=== PATIENT | female | born 1945 | race Two or more races ===

== ENCOUNTER 2023-06-12 17:21 | Emergency (ER) | payer MEDICARE, MEDICAID ==
[~2023-06-12] VITALS: Ht 154.9 cm; Wt 57.3 kg
[2023-06-12 17:30] VITALS: TEMP 98.6
[2023-06-12 17:32] VITALS: BP 184/84; PULSE 80; RESP 18; O2SAT 98
[2023-06-12] MEDS ORDERED: ACET500T58 PO (18:24)
[2023-06-12] MEDS ORDERED: CEPH500C PO (18:24)
[2023-06-12] MEDS: LIDOCAINE 1% HCL (LOCAL ANESTH.) INJ 20ML MDV ID ONE (18:30)
[2023-06-12] MEDS: ONDANSETRON ODT 4 MG TAB PO ONE (18:31)
[2023-06-12] MEDS: HYDROcodone-ACET 5/325MG TAB PO ONE (18:31)
== END 2023-06-12 18:55 | disposition home or self-care (01) ==
LOC: ER 17:21
DX: S51.811A Laceration without foreign body of right forearm, initial encounter (principal); Z79.899 Other long term (current) drug therapy; W22.8XXA Striking against or struck by other objects, initial encounter; Y93.89 Activity, other specified; Y92.89 Other specified places as the place of occurrence of the external cause; Y99.8 Other external cause status
CPT/HCPCS: 12002; 99284; J2001; Q0162

== ENCOUNTER 2024-08-18 23:28 | Inpatient (IN) | payer MEDICARE, MEDICAID ==
[~2024-08-18] VITALS: Ht 149.9 cm; Wt 56.4 kg
[~2024-08-18 23:28] MED LIST: ACET500T58 PO; CEPH500C PO
--- NOTE | 2024-08-19 00:08 | ED.PDOC ---
Foreign Body HPI Comments 78-year-old female came to ER for foreign body obstruction. Patient states she was cooking earlier, when she decided to taste the beef, when the piece of meat got stuck in her throat. Denies any drooling or shortness a breath. Chief Complaint: Foreign Body Time Seen by MD: 00:08 Primary Care Provider: ELY History of Present Illness: Nurses Notes Allergies: Coded Allergies: NO KNOWN ALLERGIES (Unverified , 06/12/23) Home Meds Active Scripts Cephalexin Monohydrate (Cephalexin) 500 Mg Cap, 1 CAP PO BID for 7 Days, #14 CAP 0 Refills Prov:SKYLA ALEX 06/12/23 Acetaminophen (Acetaminophen) 500 Mg Tab, 500 MG PO Q4HPRN, #30 TAB 0 Refills Prov:SKYLA ALEX 06/12/23 Information Source: Patient Mode of Arrival: Ambulatory Timing: Hours Duration: Since onset Severity: Moderate Ability to handle secretions: Normal Prehospital treatment: None Location: Esophagus Context: Ingestion Foreign Body: Food Associated signs and symptoms: Pain Past Medical History PAST MEDICAL HISTORY: Denies Surgical History: Denies all surgeries OIL PRODUCER History: No Pertinent OIL PRODUCER History Family History Family History: Reviewed,noncontributory to illness Social History Smoker: Non-Smoker Alcohol: Denies ETOH Use Drugs: Denies Drug Use Lives In: Home Constitutional: denies: chills, diaphoresis, fatigue, fever, malaise, sweats, weakness, others EENTM: reports: throat pain; denies: blurred vision, double vision, ear bleeding, ear discharge, ear drainage, ear pain, ear ringing, eye pain, eye redness, hearing loss, mouth pain, mouth swelling, nasal discharge, nose bleeding, nose congestion, nose pain, photophobia, tearing, throat swelling, voice changes, others Respiratory: denies: cough, hemoptysis, orthopnea, SOB at rest, shortness of breath, SOB with excertion, stridor, wheezing, others Cardiovascular: denies: chest pain, dizzy spells, diaphoresis, Dyspnea on exertion, edema, irregular heart beat, left arm pain, lightheadedness, palpitations, PND, syncope, others Gastrointestinal: denies: abdomen distended, abdominal pain, blood streaked bowels, constipated, diarrhea, dysphagia, difficulty swallowing, hematemesis, me seth, nausea, poor appetite, poor fluid intake, rectal bleeding, rectal pain, vomiting, others Genitourinary: denies: abnormal vagina bleeding, burning, dyspareunia, dysuria, flank pain, frequency, hematuria, incontinence, pain, , vagina discharge, urgency, others Neurological: denies: dizziness, fainting, headache, left sided numbness, left sided weakness, numbness, paresthesia, pre-existing deficit, right sided numbness, right sided weakness, seizure, speech problems, tingling, tremors, weakness, others Musculoskeletal: denies: back pain, gout, joint pain, joint swelling, muscle pain, muscle stiffness, neck pain, others Integumetry: denies: bruises, change in color, change in hair/nails, dryness, laceration, lesions, lumps, rash, wounds, others Allergic/Immunocompromised: denies: Difficulty Healing, Frequent Infections, Hives, Itching, others Hematologic/Lymphatic: denies: anemia, blood clots, easy bleeding, easy bruising, swollen glands, others Endocrine: denies: excessive hunger, excessive sweating, excessive thirst, excessive urination, flushing, intolerance to cold, intolerance to heat, unexplained weight gain, unexplained weight loss, others Psychiatric: denies: anxiety, bipolar disorder, depression, hopeless, panic disorder, schizophrenia, sleepless, suicidal, others Physical Exam General Appearance: No Apparent Distress, Normal HEENT: Normal ENT Inspection, Pharynx Normal, TMs Normal Neck: Full Range of Motion, Non-Tender, Normal, Normal Inspection Respiratory: Chest Non-Tender, Lungs Clear, No Accessory Muscle Use, No Respiratory Distress, Normal Breath Sounds Cardiovascular: No Edema, No JVD, No Murmur, No Gallop, Normal Peripheral Pulses, Regular Rate/Rhythm Breast Exam: Deferred Gastrointestinal: No Organomegaly, Non Tender, No Pulsatile Mass, Normal Bowel Sounds, Soft Genitalia: Deferred Pelvic: Deferred Rectal: Deferred Extremities: No calf tenderness, Normal capillary refill, Normal inspection, Normal range of motion, Non-tender, No pedal edema Musculoskeletal : Apperance: Normal Neurologic: Alert, wholesale account executive II-XII nml as Tested, No Motor Deficits, Normal Affect, Normal Mood, No Sensory Deficits Cerebellar Function: Normal Reflexes: Normal Skin: Dry, Normal Color, Warm Lymphatic: No Adenopathy Was a procedure done? Was a procedure done?: No FB Differential Dx Differential Diagnosis: Airway Obstruction, Esophageal Obstruction, Foreign Body X-Ray, Labs, Meds, VS Vital Signs Date Time Temp Pulse Resp B/P (MAP) Pulse Ox O2 Delivery O2 Flow Rate FiO2 08/19/24 00:23 80 20 95 Room Air* 0 21 08/19/24 00:10 98.0 80 20 142/104 (117) 95 98.0 08/18/24 23:52 98.2 70 20 144/109 (121) 97 98.2 Current Medications Medications (Trade) Dose Ordered Sig/Brooks Route Start Time Stop Time Status Last Admin Glucagon (Glucagen) 1 mg ONCE ONCE IV 08/19/24 00:00 08/19/24 00:01 DC 08/19/24 00:16 Sodium Chloride 1,000 ml @ 1,000 mls/hr Q1H ONCE IV 08/19/24 00:00 08/19/24 00:59 DC 08/19/24 00:16 Time of 1ST Reevaluation: 00:05 Reevaluation 1ST: Unchanged Patient Education/Counseling: Diagnosis, Treatment Family Education/Counseling: No Family Present Departure 1 Departure Time of Disposition: 01:39 (Patient with a potential foreign body in her throat. Attempted glucagon patient is having difficulty swallowing liquids. We will admit patient for further workup and expert consultation.) Impression: Primary Impression: Foreign body sensation in throat Disposition: 09 ADMITTED INPATIENT Admit to: Med Surg Condition: Serious Critical Care Note Critical Care Time?: Yes Critical care comment: Concern for choking Authorized and Performed by: Leroy Louie MD Total critical care time: Approximately 39 minutes Due to a high probability of clinically significant, life threatening deterioration, the patient required my highest level of preparedness to intervene emergently and I personally spent this critical care time directly and personally managing the patient. This critical care time included obtaining a history; examining the patient; pulse oximetry; ordering and review of studies; arranging urgent treatment with development of a management plan; evaluation of patient's response to treatment; frequent reassessment; and, discussions with other providers. This critical care time was performed to assess and manage the high probability of imminent, life-threatening deterioration that could result in multi-organ failure. It was exclusive of separately billable procedures and treating other patients and teaching time. Please see my other sections and the rest of the note for further information on patient assessment and treatment. Stability Stability form required: No Heart Score Heart Score: Heart Score Response (Comments) Value History N/A 0 EKG N/A 0 Age N/A 0 Risk Factors N/A 0 Troponin N/A 0 Total 0 I personally scribed for LEROY LOUIE MD ([email or web address]) on 08/19/24 at 00:08. Electronically submitted by Brennen Yoon ([facility]). LEROY LOUIE MD Aug 19, 2024 00:08
[2024-08-19] MEDS: SODIUM CHLORIDE 0.9% 1,000 ML IV ONE (00:16)
[2024-08-19] MEDS: GLUCAGON EMERG KIT 1mg/1ml IV ONE (00:16)
--- NOTE | 2024-08-19 00:20 | DVH ---
CHEST RADIOGRAPH Indication: choking Technique: Single frontal view of the chest was obtained COMPARISON: None FINDINGS: Lines and Tubes: None Lungs: Clear Pleura: No effusion. No pneumothorax. Cardiomediastinal contours: Unremarkable IMPRESSION: No abnormality demonstrated.
[2024-08-19 00:23] VITALS: PULSE 80; RESP 20; O2SAT 95
[2024-08-19 01:52] LABS: Basophils # (auto) 0.1 10 ^3/uL (0-0.2); Basophils % (auto) 0.8 % (0.0-2.0); Eosinophils # (auto) 0.1 10 ^3/uL (0-0.8); Eosinophils % (auto) 1.1 % (0.0-7.0); Hemoglobin 14.5 g/dL (12.2-16.2); Lymphocytes # (auto) 1.9 10 ^3/uL (0.4-5.4); Lymphocytes % (auto) 19.7 % (10.0-50.0); Mean Corpuscular Hemoglobin 30.1 pg (28.0-32.0); Mean Corpuscular Hgb Conc. 33.7 g/dL (32.0-36.0); Mean Corpuscular Volume 89.1 fL (80.0-100.0); Monocytes # (auto) 0.7 10 ^3/uL (0-1.3); Monocytes % (auto) 7.1 % (0.0-12.0); Neutrophils # (auto) 6.7 10 ^3/uL (1.6-8.6); Neutrophils % (auto) 71.3 % (37.0-80.0); Nucleated Red Blood Cells % 0.1 %; Platelet Count (auto) 175 10^3/uL (140-450); Red Blood Cells 4.82 10^6/uL (4.0-5.20); Red Cell Distribution Width 13.6 % (11.8-14.3); White Blood Cell 9.4 10^3/uL (4.4-10.8)
[2024-08-19 02:08] LABS: Potassium 3.5 mmol/L (3.5-5.1)
[2024-08-19 02:09] LABS: Anion Gap 9 (5-15); Calcium 8.7 mg/dL (8.7-10.4); Carbon Dioxide 25 mmol/L (20-31)
[2024-08-19] MEDS: ONDANSETRON HCL 4 MG/2 ML VIAL IV ONE (02:11)
[2024-08-19] MEDS: MORPHINE SULFATE 4 MG/ML SYR/VIAL IV ONE (02:12)
[2024-08-19 02:14] LABS: BUN/Creatinine Ratio 19.8 (10.0-20.0); Blood Urea Nitrogen 16 mg/dL (9-23)
[2024-08-19 02:29] LABS: Chloride 112 mmol/L (98-107); Glucose 126 mg/dL (74-106); Sodium 146 mmol/L (136-145)
--- NOTE | 2024-08-19 10:25 | DVHINCON2 ---
Date of service: Aug 19, 2024 Referring Physician Michele Reason for Consultation Food impaction History of Present Illness The patient is a 78-year-old female with a prior history of food impaction who presents with similar symptoms. She complains of dysphagia. She points to her throat states that the food is stuck in this area. She denies any hematemesis. Patient states that she tried drinking water last night and it did not go down. Patient was given glucagon which did not help. Patient has anxiety. She denies any fevers or chills or aspiration. She denies any cough wheeze or shortness of breath. She has underlying history of hypertension. Patient states that she has had several endoscopies in the past for similar findings. Her last endoscopy was done at [facility] several years ago. Past Medical History As above Past Surgical History Noncontributory Family History No gastrointestinal diseases or malignancies Social History Denies tobacco, alcohol or recreational drug use Allergies: Coded Allergies: NO KNOWN ALLERGIES (Unverified , 06/12/23) Home Meds Active Scripts Cephalexin Monohydrate (Cephalexin) 500 Mg Cap, 1 CAP PO BID for 7 Days, #14 CAP 0 Refills Prov:SKYLA ALEX 06/12/23 Acetaminophen (Acetaminophen) 500 Mg Tab, 500 MG PO Q4HPRN, #30 TAB 0 Refills Prov:SKYLA ALEX 06/12/23 Review of Systems Denies weight changes Denies visual changes or hearing loss Denies chest pain, palpitations, cough wheeze and shortness of breath Denies diabetes or hypothyroidism Denies stroke or seizure Denies history of anemia or malignancy Denies rashes bruises or pruritus Denies arthralgias or myalgias Vital Signs Vital Signs Date Time Temp Pulse Resp B/P (MAP) Pulse Ox O2 Delivery O2 Flow Rate FiO2 08/19/24 08:14 48 08/19/24 08:00 Nasal Cannula* 2 28 08/19/24 08:00 98.8 16 125/73 (90) 99 98.8 Labs/Diagnostic Data Labs Test 08/19/24 01:44 Range/Units White Blood Count 9.4 4.4-10.8 10^3/uL Red Blood Count 4.82 4.0-5.20 10^6/uL Hemoglobin 14.5 12.2-16.2 g/dL Hematocrit 43.0 36.0-46.0 % Mean Corpuscular Volume 89.1 80.0-100.0 fL Mean Corpuscular Hemoglobin 30.1 28.0-32.0 pg Mean Corpuscular Hemoglobin Concent 33.7 32.0-36.0 g/dL Red Cell Distribution Width 13.6 11.8-14.3 % Platelet Count 175 140-450 10^3/uL Mean Platelet Volume 10.5 6.9-10.8 fL Neutrophils (%) (Auto) 71.3 37.0-80.0 % Lymphocytes (%) (Auto) 19.7 10.0-50.0 % Monocytes (%) (Auto) 7.1 0.0-12.0 % Eosinophils (%) (Auto) 1.1 0.0-7.0 % Basophils (%) (Auto) 0.8 0.0-2.0 % Neutrophils # (Auto) 6.7 1.6-8.6 10 ^3/uL Lymphocytes # (Auto) 1.9 0.4-5.4 10 ^3/uL Monocytes # (Auto) 0.7 0-1.3 10 ^3/uL Eosinophils # (Auto) 0.1 0-0.8 10 ^3/uL Basophils # (Auto) 0.1 0-0.2 10 ^3/uL Nucleated Red Blood Cells 0.1 % Sodium Level 146 H 136-145 mmol/L Potassium Level 3.5 3.5-5.1 mmol/L Chloride Level 112 H 98-107 mmol/L Carbon Dioxide Level 25 20-31 mmol/L Anion Gap 9 5-15 Blood Urea Nitrogen 16 9-23 mg/dL Creatinine 0.81 0.550-1.02 mg/dL Glomerular Filtration Rate Calc 74 >90 mL/min BUN/Creatinine Ratio 19.8 10.0-20.0 Serum Glucose 126 H 74-106 mg/dL Calcium Level 8.7 8.7-10.4 mg/dL Assessment 1. Dysphagia 2. Food impaction 3. Bradycardia Problems(with codes): (1) Laceration of right forearm (2) Foreign body sensation in throat Plan/Recommendation 1. Urgent EGD with monitored anesthesia care or general anesthesia 2. Patient will need outpatient follow up with the primary care physician and referral for her bradycardia 3. Further recommendations after endoscopy 4. Risks benefits and alternatives were discussed at length with the patient. She consents to the plan Plan discussed with: Patient AUDREY GOMES MD Aug 19, 2024 10:25
[2024-08-19] MEDS: SODIUM CHLORIDE 0.9% 1,000 ML IV SCH (10:30)
[2024-08-19] MEDS ORDERED: ONDANSETRON HCL 4 MG/2 ML VIAL IV PRN (10:30)
--- NOTE | 2024-08-19 10:37 | DVHHP2 ---
History of Present Illness Reason for Visit: Foreign body History of Present Illness 78-year-old female with a medical history of hypertension presents to the emergency department with the concern for possible foreign body obstruction. The patient reports that earlier today, while cooking, she has tested a piece of beef which became lodged in her throat. She describes a sensation of something stuck but denies shortness of breath, drooling, chest pain, vomiting prior to the incident. Past Medical History Hypertension Past Surgical History Denies Past Social History Reviewed, non-contributory to the management of this case. Review of Systems Constitutional: Yes: Malaise; No: Fever, Chills, Sweats, Weakness, Other Eyes: No: Pain, Vision change, Conjunctivae inflammation, Eyelid inflammation, Other, Redness ENT: No: Ear pain, Ear discharge, Nose pain, Nose discharge, Nose congestion, Mouth pain, Mouth swelling, Throat pain, Throat swelling, Other Respiratory: No: Cough, Dry, Shortness of breath, SOB with excertion, Wheezing, Hemoptysis, Pleuritic Pain, Sputum, Wheezing, Other Cardiovascular: No: Chest Pain, Palpitations, Orthopnea, Paroxysmal Noc. Dyspnea, Edema, Lt Headedness, Other Gastrointestinal: Other (Something stuck in throat); No: Nausea, Vomiting, Abdominal Pain, Diarrhea, Constipation, Melena, Hematochezia Genitourinary: No Dysuria, No Frequency, No Incontinence, No Hematuria, No Retention, No Other Allergies: Coded Allergies: NO KNOWN ALLERGIES (Unverified , 06/12/23) Exam Vital Signs Vital Signs Date Time Temp Pulse Resp B/P (MAP) Pulse Ox O2 Delivery O2 Flow Rate FiO2 08/19/24 08:14 48 08/19/24 08:00 Nasal Cannula* 2 28 08/19/24 08:00 98.8 16 125/73 (90) 99 98.8 General Appearance: Alert, Oriented X3, Cooperative, mild distress HEENT: Atraumatic, PERRLA, EOMI Respiratory: Clear to auscultation, Normal air movement Cardiovascular: Regular rate Abdominal: Normal bowel sounds, Soft, No tenderness Extremities: No clubbing, No cyanosis, No edema Skin: No rashes, No breakdown Neuro: Normal speech Labs/Xrays Labs Test 08/19/24 01:44 Range/Units White Blood Count 9.4 4.4-10.8 10^3/uL Red Blood Count 4.82 4.0-5.20 10^6/uL Hemoglobin 14.5 12.2-16.2 g/dL Hematocrit 43.0 36.0-46.0 % Mean Corpuscular Volume 89.1 80.0-100.0 fL Mean Corpuscular Hemoglobin 30.1 28.0-32.0 pg Mean Corpuscular Hemoglobin Concent 33.7 32.0-36.0 g/dL Red Cell Distribution Width 13.6 11.8-14.3 % Platelet Count 175 140-450 10^3/uL Mean Platelet Volume 10.5 6.9-10.8 fL Neutrophils (%) (Auto) 71.3 37.0-80.0 % Lymphocytes (%) (Auto) 19.7 10.0-50.0 % Monocytes (%) (Auto) 7.1 0.0-12.0 % Eosinophils (%) (Auto) 1.1 0.0-7.0 % Basophils (%) (Auto) 0.8 0.0-2.0 % Neutrophils # (Auto) 6.7 1.6-8.6 10 ^3/uL Lymphocytes # (Auto) 1.9 0.4-5.4 10 ^3/uL Monocytes # (Auto) 0.7 0-1.3 10 ^3/uL Eosinophils # (Auto) 0.1 0-0.8 10 ^3/uL Basophils # (Auto) 0.1 0-0.2 10 ^3/uL Nucleated Red Blood Cells 0.1 % Sodium Level 146 H 136-145 mmol/L Potassium Level 3.5 3.5-5.1 mmol/L Chloride Level 112 H 98-107 mmol/L Carbon Dioxide Level 25 20-31 mmol/L Anion Gap 9 5-15 Blood Urea Nitrogen 16 9-23 mg/dL Creatinine 0.81 0.550-1.02 mg/dL Glomerular Filtration Rate Calc 74 >90 mL/min BUN/Creatinine Ratio 19.8 10.0-20.0 Serum Glucose 126 H 74-106 mg/dL Calcium Level 8.7 8.7-10.4 mg/dL ROCEDURE(s): CXRP - CHEST PORTABLE REASON: choking ORDER NUMBER(s): [id number], ACCESSION NUMBER(s): [id number] CHEST RADIOGRAPH Indication: choking Technique: Single frontal view of the chest was obtained COMPARISON: None FINDINGS: Lines and Tubes: None Lungs: Clear Pleura: No effusion. No pneumothorax. Cardiomediastinal contours: Unremarkable IMPRESSION: No abnormality demonstrated. Assessment/Plan Assessment/Plan # Suspected esophageal foreign body obstruction ( beef impaction ), stable airway, no signs of obstruction or aspiration, no evidence of complete esophageal blockage, no emergent respiratory compromise # dysphagia Admit to medical unit Airway monitoring- monitor for any signs of respiratory compromise or drooling Keep patient NPO IV fluid Glucagon given in ER GI consult Educate patient on food safety and chewing thoroughly Keep head of bed elevated # hypertension Continue with FAITH inhibitor Hydralazine as needed Monitor DVT prophylaxis Medical plan discussed with patient and RN Plan discussed with: Patient My Orders Orders - KARLA FUCHS Procedure Category Date Status Time May Elevate Hob ____ ROSA ELENA 08/19/24 Verified Degrees 10:28 Admit ADMIT 08/19/24 Verified 10:28 Code Status CODE 08/19/24 Verified 10:28 0.9% Ns 1000 Ml PHA 08/19/24 Verified 10:30 Ondansetron Hcl PHA 08/19/24 Verified (Zofran) 10:30 Date of Service: Aug 19, 2024 Billing Provider: KARLA FUCHS Common Visit Codes: 72027-[id number] INP/OBS CARE (HIGH) KARLA FUCHS Aug 19, 2024 10:37
[2024-08-19] MEDS ORDERED: PROPOFOL 10 MG/ML 20 ML IV ONE ×2 (10:40→12:21)
[2024-08-19] MEDS ORDERED: ONDANSETRON HCL 4 MG/2 ML VIAL ONE (10:41)
[2024-08-19] MEDS ORDERED: LIDOCAINE 2% (LOCAL ANESTH.) PF 5ml SDV ONE (10:41)
--- NOTE | 2024-08-19 11:09 | DVHNC2 ---
Procedure - DATE OF PROCEDURE: AUGUST 19, 2024 PROCEDURE PERFORMED; 1.EGD WITH FOREIGN BODY REMOVAL WITH ANESTHESIA PERFORMED BY;AUDREY CALERO MD; DR KOHLER PRE-PROCEDURE DX; 1.FOOD IMPACTION 2.DYSPHAGIA POST-PROCEDURE DX; 1.FOOD IMPACTION AT 30 CM FROM INCISORS 2. SEVERE ESOPHAGITIS AT SITE OF FOOD IMPACTION 3. ESOPHAGEAL TEAR AT SITE OF FOOD IMPACTION 4. HIATAL HERNIA 5. SUSPECTED SCHATZKI'S RING INDICATIONS FOR PROCEDURE: The patient is a 78 year old with food impaction after eating beef-she has had multiple prior episodes-egd is warranted for removal of food bolus ANESTHESIA; DR DANIELS DETAILS OF PROCEDURE; Informed consent was obtained after risks, benefits and alternatives were discussed. Consent was given. The patient was placed in the left lateral decubitus position and an Olympus endoscope was inserted into the oropharynx advanced esophagus. The patient had food impaction at 30 cm. The food bolus appeared to be consistent with patient's history. Attempt to use a Rodriguez net was unsuccessful. And a foreign body tail and was used. Multiple passes were made. The food was significantly impacted. Approximately 45 minutes to 1 hour was spent breaking the food bolus into smaller pieces. At one point gentle pressure was applied on the food bolus however I was not able to advance the food bolus. After enough of the bolus was broken into smaller pieces and retrieved, air insufflation alone was able to advance the bolus into the stomach. The scope was advanced into the stomach then into the duodenal bulb and duodenum. The scope was then withdrawn. The food bolus was seen in the proximal stomach. The Z-line was at approximately 38 cm and the patient had a small hiatal hernia and what appeared to be a Schatzki's ring. The food bolus was stuck proximal to this. There was severe esophagitis at the site of impaction between 30 and 33 cm. There was a small linear tear at the site of the food impaction in the 9 o'clock position. There was no active bleeding although there was some oozing during the procedure. Not sure if this was due to the food bolus itself retching or instrumentation. There was no evidence of any immediate complications other than the esophageal mucosal tear but no evidence of perforation. The scope was then withdrawn the procedure terminated. The patient tolerated the procedure well. Impression: 1. Food impaction was able to disimpact with the Floyd with numerous passes. 2. Small hiatal hernia and Schatzki's ring 3. Esophageal tear at site of food impaction with severe esophagitis in the surrounding tissue Recommendations: 1. Keep the patient NPO for now 2. IV Protonix 3. Chest x-ray to rule out any free air 4. Cardiac consultation given the patient's bradycardia prior to the procedure 5. I will be signing off to Dr. Marrero 6. Consider chest CT pending chest x-ray or patient's symptoms AUDREY GOMES MD Aug 19, 2024 11:09
[2024-08-19] MEDS ORDERED: LISI30TA8 PO (11:18)
[2024-08-19] MEDS: GLUCAGON EMERG KIT 1mg/1ml ONE (11:56)
[2024-08-19 12:21] VITALS: O2SAT 100
[2024-08-19] MEDS ORDERED: ONDANSETRON HCL 4 MG/2 ML VIAL IV ONE (12:30)
[2024-08-19] MEDS: PANTOPRAZOLE 80 MG in SODIUM CHL 0.9% 100 ML IV ONE ×2 (12:30→13:31)
--- NOTE | 2024-08-19 13:14 | DVH ---
CLINICAL INFORMATION: 78 years old, Female; POST FOREIGN BODY REMOVAL. TECHNIQUE: Single AP portable chest radiograph was obtained. COMPARISON: XY CHEST PORTABLE on DOS: 08/18/24 FINDINGS: Interval development of patchy airspace opacities and interstitial opacities in the left lung, may be inflammatory or infectious in nature. Mild atelectasis in the right lung base without focal consolid ation no pneumothorax. IMPRESSION: Interval development of patchy airspace opacities and interstitial opacities in the left lung, may be inflammatory or infectious in nature.
[2024-08-19 15:35] LABS: INR 1.02 (0.9-1.15); Partial Thromboplastin Time 26.7 SEC (24.5-34.5); Prothrombin Time 10.8 sec (9.3-11.8)
[2024-08-19 15:59] VITALS: BP 111/76; PULSE 64; RESP 18; TEMP 98.4; O2SAT 98
[2024-08-19 16:55] VITALS: BP 156/63; PULSE 64; RESP 20; TEMP 98; O2SAT 93
[2024-08-19 20:00] VITALS: PULSE 69; PULSE 70; RESP 17
[2024-08-19 21:00] VITALS: BP 152/79; PULSE 68; RESP 18; TEMP 100.3; O2SAT 95
[2024-08-20] VITALS (7 sets, daily range): BP systolic 117–152; BP diastolic 48–76; PULSE 63–78; RESP 16–18; TEMP 98.3–99.4; O2SAT 91–95
[2024-08-20] MEDS: hydrALAZINE HCL 20 MG/ML VL IV PRN (03:35)
[2024-08-20 08:16] LABS: Basophils # (auto) 0.1 10 ^3/uL (0-0.2); Basophils % (auto) 0.6 % (0.0-2.0); Eosinophils # (auto) 0.1 10 ^3/uL (0-0.8); Eosinophils % (auto) 0.8 % (0.0-7.0); Hematocrit 41.8 % (36.0-46.0); Hemoglobin 14.1 g/dL (12.2-16.2); Lymphocytes % (auto) 20.6 % (10.0-50.0); Mean Corpuscular Hgb Conc. 33.8 g/dL (32.0-36.0); Mean Corpuscular Volume 88.8 fL (80.0-100.0); Monocytes # (auto) 0.6 10 ^3/uL (0-1.3); Monocytes % (auto) 6.5 % (0.0-12.0); Neutrophils # (auto) 6.9 10 ^3/uL (1.6-8.6); Neutrophils % (auto) 71.5 % (37.0-80.0); Nucleated Red Blood Cells % 0.1 %; Platelet Count (auto) 158 10^3/uL (140-450); Red Blood Cells 4.71 10^6/uL (4.0-5.20); Red Cell Distribution Width 13.5 % (11.8-14.3); White Blood Cell 9.7 10^3/uL (4.4-10.8)
[2024-08-20 08:46] LABS: Alanine Aminotransferase 11 U/L (7-40); Alkaline Phosphatase 65 U/L (46-116); Anion Gap 8 (5-15); Aspartate Aminotransferase 16 U/L (13-40); BUN/Creatinine Ratio 9.1 (10.0-20.0); Calcium 9.2 mg/dL (8.7-10.4); Carbon Dioxide 24 mmol/L (20-31); Glucose 104 mg/dL (74-106); Potassium 3.7 mmol/L (3.5-5.1); Sodium 142 mmol/L (136-145); Total Protein 6.3 g/dL (5.7-8.2)
[2024-08-20 08:48] LABS: Bilirubin, Total 1.3 mg/dL (0.2-1.0); Blood Urea Nitrogen 7 mg/dL (9-23); Chloride 110 mmol/L (98-107)
[2024-08-20] MEDS: ENOXAPARIN SOD 40 MG/0.4 ML SYRINGE SC SCH (11:44)
--- NOTE | 2024-08-20 13:28 | DVHPN2 ---
Progress Note Date Seen: Aug 20, 2024 Medical Necessity Reason Pt with a Central, PICC or Fol: No Subjective Patient reports: No new complaints Review of Systems: HEENT:Normal, CVS:Normal, RESPIRATORY:Normal, GI:Normal, :Normal, MSK:Normal, NEURO:Normal Objective vital signs Vital Sign Date Time Temp Pulse Resp B/P (MAP) Pulse Ox O2 Delivery O2 Flow Rate FiO2 08/20/24 09:00 99.1 78 16 117/48 (71) 92 99.1 08/20/24 08:00 Room Air* 0 21 Total Intake and Output 08/19/24 08/19/24 08/20/24 15:00 23:00 07:00 Intake Total 300 ml 0 ml Balance 300 ml 0 ml medications Current Medications Medications Dose Ordered Sig/Brooks Route Start Time Stop Time Status Last Admin Dose Admin Sodium Chloride 1,000 ml @ 60 mls/hr [id number] IV 08/19/24 10:30 08/20/24 11:45 60 MLS/HR Ondansetron HCl 4 mg Q4HP PRN IV 08/19/24 10:30 Enoxaparin Sodium 40 mg DAILY SC 08/20/24 10:00 08/20/24 11:44 40 MG Hydralazine HCl 10 mg Q6HP PRN IV 08/19/24 11:30 08/20/24 03:35 10 MG Examination: GENERAL:Normal, HEENT:Normal, NECK:Normal, LUNGS:Normal, CVS:Normal, ABDOMEN:Normal, MSK:Normal, SKIN:Normal, NEURO:Normal, :Normal laboratory and microbiology Laboratory Tests 08/20/24 07:51 Test 08/20/24 07:51 Range/Units Serum Glucose 104 74-106 mg/dL Problem List/Assessment/Plan Problem List/Assessment/Plan #1 food impaction/esophageal tear s/p egd #2 severe esophagitis: iv ppi #3 htn #4 left lung infiltrates ?aspiration pneumonia: iv antibiotics #5 ? esophageal perforation: check ct with contrast advance care planning- full code- time spent 19 mins Plan discussed with: Patient Date of Service: Aug 20, 2024 Billing Provider: DANUTA RITTER MD Common Visit Codes: [id number]-[id number] INP/OBS CARE(HIGH) Secondary Visit Codes: [id number] CARE PLAN 30 MINUTES DANUTA RITTER MD Aug 20, 2024 13:28
[2024-08-20] MEDS: OMNIPAQUE 12mg/ml 500ml ORAL SOLUTION PO ONE (14:20)
[2024-08-20] MEDS: PANTOPRAZOLE 40 MG/10 ML VIAL INJ IV ONE (15:10)
[2024-08-20] MEDS: PIPERACILLIN-TAZOB 3.375GM 100 ML IV ONE (15:11)
--- NOTE | 2024-08-20 16:40 | DVH ---
Indication: esophageal tear Technique: CT axial images of the chest, abdomen and pelvis are obtained with intravenous contrast. Coronal and sagittal reformats were obtained. Radiation Dose Information: CTDI volume is 11.89 mGy. Dose-length product is 885.21 mGy*cm Comparison: None FINDINGS: Trachea patent. No pneumothorax. Left upper lobe ground-glass airspace opacification. Heart normal in size. Coronary artery calcification disease. Esophageal wall thickening diffusely. No evidence for pneumomediastinum. No supraclavicular, axillary lymphadenopathy. Adrenal glands, spleen, pancreas and liver are unremarkable in shape. Cholelithiasis. No hydronephrosis, nephrolithiasis. Stomach is partially distended. Small bowel loops normal in caliber. Colonic diverticular disease. Moderate volume stool in the colon. Normal appendix. Abdominal aortic atherosclerotic disease. Bladder is partially distended. Left hip arthroplasty obsc uring evaluation of the pelvis. No definitive free fluid. No inguinal lymphadenopathy. [id number] thoracolumbar degenerative disc disease. IMPRESSION: Limited evaluation without contrast. 1. Left upper lobe ground-glass airspace opacification which can be secondary to infection, inflammat ory etiology. Follow-up to resolution to exclude neoplastic processes. 2. Coronary and aortic atherosclerosis. 3. Esophageal wall thickening. Correlate for esophagitis and other etiologies No evidence for pneumom ediastinum 4. Cholelithiasis. 5. Colonic diverticulosis. 6. Other findings as described.
[2024-08-20 19:42] LABS: Urine Bacteria None Seen /hpf (None Seen)
[2024-08-20 19:56] LABS: Urine Blood Negative /uL (Negative); Urine Clarity Clear (Clear); Urine Color Light-Yellow (Yellow); Urine Mucus FEW (None Seen); Urine Protein, UAD Negative (Negative); Urine Specific Gravity 1.015 (1.001-1.035); Urine Squamous Epithelial Cell FEW /hpf (<5); Urine Urobilinogen Normal (Negative); Urine WBC 1 /HPF (0-5)
[2024-08-20] MEDS: PANTOPRAZOLE 40 MG/10 ML VIAL INJ IV SCH (22:03)
[2024-08-20] MEDS: PIPERACILLIN-TAZOB 3.375GM 100 ML IV SCH (22:03)
--- NOTE | 2024-08-20 22:42 | DVHPN2 ---
Progress Note - Dictate Date Seen: Aug 20, 2024 Medical Necessity Reason Pt with a Central, PICC or Fol: No Subjective No new complaints Patient denies any chest pain or shortness of breath She is currently NPO EGD findings reviewed from yesterday's endoscopy by Dr. Junior Suspected esophageal mucosal tear with no evidence of pneumomediastinum on chest x-ray vital signs Vital Sign Date Time Temp Pulse Resp B/P (MAP) Pulse Ox O2 Delivery O2 Flow Rate FiO2 08/20/24 13:00 99.3 67 16 118/53 (74) 91 99.3 08/20/24 08:00 Room Air* 0 21 Total Intake and Output 08/19/24 08/19/24 08/20/24 15:00 23:00 07:00 Intake Total 300 ml 0 ml Balance 300 ml 0 ml medications Current Medications Medications Dose Ordered Sig/Brooks Route Start Time Stop Time Status Last Admin Dose Admin Sodium Chloride 1,000 ml @ 60 mls/hr [id number] IV 08/19/24 10:30 08/20/24 11:45 60 MLS/HR Ondansetron HCl 4 mg Q4HP PRN IV 08/19/24 10:30 Enoxaparin Sodium 40 mg DAILY SC 08/20/24 10:00 08/20/24 11:44 40 MG Hydralazine HCl 10 mg Q6HP PRN IV 08/19/24 11:30 08/20/24 03:35 10 MG Pantoprazole Sodium 40 mg BID IV 08/20/24 22:00 08/20/24 22:03 40 MG Piperacillin Sod/ Tazobactam Sod 100 ml @ 25 mls/hr Q8HR IV 08/20/24 22:00 08/20/24 22:03 25 MLS/HR objective GENERAL:Normal, HEENT:Normal, NECK:Normal, LUNGS:Normal, CVS:Normal, ABDOMEN:Normal, MSK:Normal, SKIN:Normal, NEURO:Normal, :Normal laboratory and microbiology Laboratory Tests 08/20/24 07:51 Test 08/20/24 07:51 Range/Units Serum Glucose 104 74-106 mg/dL CT CHEST ABD PELVIS WITH ORAL CONTRAST ONLY IMPRESSION: Limited evaluation without contrast. 1. Left upper lobe ground-glass airspace opacification which can be secondary to infection, inflammatory etiology. Follow-up to resolution to exclude neoplastic processes. 2. Coronary and aortic atherosclerosis. 3. Esophageal wall thickening. Correlate for esophagitis and other etiologies No evidence for pneumomediastinum 4. Cholelithiasis. 5. Colonic diverticulosis. Problems(with codes): (1) Foreign body sensation in throat (2) Food impaction of esophagus (3) Hiatal hernia with gastroesophageal reflux disease and esophagitis Prognosis Plan IV Protonix 40 mg q.12 hours Carafate suspension 1 g p.o. 4 times a day Ice chips and if she tolerates it start on advance to clear liquid diet DC aspirin NSAIDs smoking alcohol Chew food well and eat smaller meals Plan discussed with: Other (Dr Jo) SHANIKA HERNÁNDEZ MD Aug 20, 2024 22:42
[2024-08-21] VITALS (7 sets, daily range): BP systolic 129–171; BP diastolic 57–82; PULSE 57–77; RESP 15–18; TEMP 97.5–98.4; O2SAT 94–96
[2024-08-21] MEDS: SUCRALFATE 1 GM/10 ML ORAL SUSP PO SCH (05:14)
[2024-08-21 06:10] LABS: Alkaline Phosphatase 59 U/L (46-116); Anion Gap 10 (5-15); Carbon Dioxide 24 mmol/L (20-31); Glucose 87 mg/dL (74-106); Sodium 142 mmol/L (136-145); Total Protein 6.1 g/dL (5.7-8.2)
[2024-08-21 06:11] LABS: Albumin 3.9 g/dL (3.2-4.8); Aspartate Aminotransferase 13 U/L (13-40)
[2024-08-21 06:17] LABS: Basophils # (auto) 0 10 ^3/uL (0-0.2); Basophils % (auto) 0.6 % (0.0-2.0); Eosinophils # (auto) 0.4 10 ^3/uL (0-0.8); Eosinophils % (auto) 5.6 % (0.0-7.0); Hematocrit 40.2 % (36.0-46.0); Hemoglobin 13.7 g/dL (12.2-16.2); Lymphocytes # (auto) 2.5 10 ^3/uL (0.4-5.4); Lymphocytes % (auto) 37.9 % (10.0-50.0); Mean Corpuscular Hemoglobin 30.4 pg (28.0-32.0); Mean Corpuscular Hgb Conc. 34.1 g/dL (32.0-36.0); Mean Corpuscular Volume 89.1 fL (80.0-100.0); Monocytes # (auto) 0.6 10 ^3/uL (0-1.3); Monocytes % (auto) 9.5 % (0.0-12.0); Neutrophils % (auto) 46.4 % (37.0-80.0); Nucleated Red Blood Cells % 0.1 %; Platelet Count (auto) 159 10^3/uL (140-450); Red Blood Cells 4.51 10^6/uL (4.0-5.20); Red Cell Distribution Width 13.2 % (11.8-14.3); White Blood Cell 6.5 10^3/uL (4.4-10.8)
[2024-08-21 06:25] LABS: Alanine Aminotransferase < 9 U/L (7-40); Bilirubin, Total 1.5 mg/dL (0.2-1.0); Blood Urea Nitrogen 8 mg/dL (9-23); Chloride 108 mmol/L (98-107); Potassium 3.2 mmol/L (3.5-5.1)
[2024-08-21] MEDS: ACETAMINOPHEN 325 MG TAB PO PRN (07:40)
--- NOTE | 2024-08-21 11:53 | DVHPN2 ---
Progress Note Date Seen: Aug 21, 2024 Medical Necessity Reason Pt with a Central, PICC or Fol: No Subjective Patient reports: No new complaints Review of Systems: HEENT:Normal, CVS:Normal, RESPIRATORY:Normal, GI:Normal, :Normal, MSK:Normal, NEURO:Normal Objective vital signs Vital Sign Date Time Temp Pulse Resp B/P (MAP) Pulse Ox O2 Delivery O2 Flow Rate FiO2 08/21/24 09:00 98.4 57 15 129/57 (81) 94 98.4 08/21/24 08:00 Room Air* 0 21 Total Intake and Output 08/20/24 08/20/24 08/21/24 15:00 23:00 07:00 Intake Total 1540 ml 50 ml Balance 1540 ml 50 ml medications Current Medications Medications Dose Ordered Sig/Brooks Route Start Time Stop Time Status Last Admin Dose Admin Sodium Chloride 1,000 ml @ 60 mls/hr [id number] IV 08/19/24 10:30 08/20/24 11:45 60 MLS/HR Ondansetron HCl 4 mg Q4HP PRN IV 08/19/24 10:30 Enoxaparin Sodium 40 mg DAILY SC 08/20/24 10:00 08/21/24 07:41 40 MG Hydralazine HCl 10 mg Q6HP PRN IV 08/19/24 11:30 08/21/24 05:41 10 MG Pantoprazole Sodium 40 mg BID IV 08/20/24 22:00 08/21/24 07:40 40 MG Piperacillin Sod/ Tazobactam Sod 100 ml @ 25 mls/hr Q8HR IV 08/20/24 22:00 08/21/24 05:14 25 MLS/HR Sucralfate 1 gm QID@0600,1130,1700,2200 PO 08/21/24 06:00 08/21/24 05:14 1 GM Acetaminophen 650 mg Q8HPRN PRN PO 08/21/24 02:45 08/21/24 07:40 650 MG Examination: GENERAL:Normal, HEENT:Normal, NECK:Normal, LUNGS:Normal, CVS:Normal, ABDOMEN:Normal, MSK:Normal, SKIN:Normal, NEURO:Normal, :Normal laboratory and microbiology Laboratory Tests 08/21/24 04:59 Test 08/21/24 04:59 Range/Units Serum Glucose 87 74-106 mg/dL Problem List/Assessment/Plan Problem List/Assessment/Plan #1 food impaction/esophageal tear s/p egd #2 severe esophagitis: iv ppi #3 htn #4 left lung infiltrates ?aspiration pneumonia: iv antibiotics #5 ? esophageal perforation: ruled out advance care planning- full code- time spent 19 mins Plan discussed with: Patient My Orders My Orders Orders - DANUTA RITTER MD Procedure Category Date Status Time Ct Chst/Ab/Pl W CT 08/20/24 Resulted Con-Oral Only 13:21 Pantoprazole PHA 08/20/24 In Process (Protonix) 22:00 Piperacillin-Tazob PHA 08/20/24 In Process 3.375gm (Zosyn 3.375g 22:00 Urinalysis LAB 08/21/24 Logged 07:56 Potassium Effervesent PHA 08/21/24 Transmitted Tab (Klor-Con/Ef) 12:00 Basic Metabolic Panel LAB 08/22/24 Verified 06:00 Magnesium LAB 08/22/24 Verified 05:00 Chest Portable XY 08/22/24 Transmitted 06:00 Pt Request For Service PT 08/21/24 Transmitted 11:48 Date of Service: Aug 21, 2024 Billing Provider: DANUTA RITTER MD Common Visit Codes: [id number] INP/OBS CARE(HIGH) DANUTA RITTER MD Aug 21, 2024 11:53
[2024-08-21] MEDS: POTASSIUM EFFERVESENT TAB 25 MEQ PO ONE (14:31)
--- NOTE | 2024-08-21 22:32 | DVHPN2 ---
Progress Note - Dictate Date Seen: Aug 21, 2024 Medical Necessity Reason Pt with a Central, PICC or Fol: No Subjective No new complaints Patient denies any chest pain or shortness of breath She is currently on a full liquid diet which she is tolerating well vital signs Vital Sign Date Time Temp Pulse Resp B/P (MAP) Pulse Ox O2 Delivery O2 Flow Rate FiO2 08/21/24 21:17 171/72 08/21/24 21:00 98.0 57 17 95 98.0 08/21/24 08:00 Room Air* 0 21 Total Intake and Output 08/20/24 08/20/24 08/21/24 15:00 23:00 07:00 Intake Total 1540 ml 50 ml Balance 1540 ml 50 ml medications Current Medications Medications Dose Ordered Sig/Brooks Route Start Time Stop Time Status Last Admin Dose Admin Ondansetron HCl 4 mg Q4HP PRN IV 08/19/24 10:30 Hydralazine HCl 10 mg Q6HP PRN IV 08/19/24 11:30 08/21/24 21:17 10 MG Pantoprazole Sodium 40 mg BID IV 08/20/24 22:00 08/21/24 21:17 40 MG Piperacillin Sod/ Tazobactam Sod 100 ml @ 25 mls/hr Q8HR IV 08/20/24 22:00 08/21/24 21:17 25 MLS/HR Sucralfate 1 gm QID@0600,1130,1700,2200 PO 08/21/24 06:00 08/21/24 21:16 1 GM Acetaminophen 650 mg Q8HPRN PRN PO 08/21/24 02:45 08/21/24 21:46 650 MG objective GENERAL:Normal, HEENT:Normal, NECK:Normal, LUNGS:Normal, CVS:Normal, ABDOMEN:Normal, MSK:Normal, SKIN:Normal, NEURO:Normal, :Normal laboratory and microbiology Laboratory Tests 08/21/24 04:59 Test 08/21/24 04:59 Range/Units Serum Glucose 87 74-106 mg/dL CT CHEST ABD PELVIS IMPRESSION: Limited evaluation without contrast. 1. Left upper lobe ground-glass airspace opacification which can be secondary to infection, inflammatory etiology. Follow-up to resolution to exclude neoplastic processes. 2. Coronary and aortic atherosclerosis. 3. Esophageal wall thickening. Correlate for esophagitis and other etiologies No evidence for pneumomediastinum 4. Cholelithiasis. 5. Colonic diverticulosis. Problems(with codes): (1) Hiatal hernia with gastroesophageal reflux disease and esophagitis (2) Food impaction of esophagus Prognosis Plan Advance to soft mechanical diet Protonix 40 mg p.o. twice a day Carafate 1 g p.o. twice a day Patient should be maintained on a PPI upon discharge She was also advised outpatient follow up in my office for ongoing management and observation Plan discussed with: Patient, Other (Nurse) SHANIKA HERNÁNDEZ MD Aug 21, 2024 22:32
[2024-08-22 01:00] VITALS: BP 159/75; PULSE 56; RESP 17; TEMP 98; O2SAT 98
[2024-08-22 05:00] VITALS: BP 154/63; PULSE 62; RESP 17; TEMP 98; O2SAT 94
--- NOTE | 2024-08-22 06:35 | DVH ---
EXAM: XR Chest, 1 View CLINICAL INDICATION: pneumonia TECHNIQUE: Frontal view of the chest. COMPARISON: XY CHEST XRAY 1 VIEW on DOS: 08/19/24, XY CHEST PORTABLE on DOS: 08/18/24 FINDINGS: LUNGS AND PLEURAL SPACES: Unremarkable. No consolidation. No pneumothorax. HEART: Unremarkable. No cardiomegaly. MEDIASTINUM: Unremarkable. Normal mediastinal contour. BONES/JOINTS: Unremarkable. No acute fracture. OTHER FINDINGS: . IMPRESSION: No acute cardiopulmonary process.
[2024-08-22 06:36] LABS: Anion Gap 11 (5-15); Calcium 9.4 mg/dL (8.7-10.4); Carbon Dioxide 23 mmol/L (20-31); Potassium 3.5 mmol/L (3.5-5.1); Sodium 142 mmol/L (136-145)
[2024-08-22 06:42] LABS: Blood Urea Nitrogen 6 mg/dL (9-23); Chloride 108 mmol/L (98-107); Glucose 99 mg/dL (74-106)
[2024-08-22 08:00] VITALS: PULSE 72; PULSE 80; RESP 18
[2024-08-22 09:00] VITALS: BP 162/78; PULSE 59; RESP 20; TEMP 98.3; O2SAT 94
--- NOTE | 2024-08-22 11:46 | DVHDS2 ---
Discharge Summary Date of Admission Aug 19, 2024 at 10:28 Date of Discharge: Aug 22, 2024 Labs/Diagnostic Data: Laboratory Results Test 08/22/24 05:50 08/21/24 04:59 08/20/24 15:45 08/19/24 14:27 Sodium Level 142 mmol/L (136-145) Potassium Level 3.5 mmol/L (3.5-5.1) Chloride Level 108 mmol/L (98-107) Carbon Dioxide Level 23 mmol/L (20-31) Anion Gap 11 (5-15) Blood Urea Nitrogen 6 mg/dL (9-23) Creatinine 0.67 mg/dL (0.550-1.02) Glomerular Filtration Rate Calc 89 mL/min (>90) BUN/Creatinine Ratio 9.0 (10.0-20.0) Serum Glucose 99 mg/dL (74-106) Calcium Level 9.4 mg/dL (8.7-10.4) Magnesium Level 2.0 mg/dL (1.6-2.6) White Blood Count 6.5 10^3/uL (4.4-10.8) Red Blood Count 4.51 10^6/uL (4.0-5.20) Hemoglobin 13.7 g/dL (12.2-16.2) Hematocrit 40.2 % (36.0-46.0) Mean Corpuscular Volume 89.1 fL (80.0-100.0) Mean Corpuscular Hemoglobin 30.4 pg (28.0-32.0) Mean Corpuscular Hemoglobin Concent 34.1 g/dL (32.0-36.0) Red Cell Distribution Width 13.2 % (11.8-14.3) Platelet Count 159 10^3/uL (140-450) Mean Platelet Volume 10.8 fL (6.9-10.8) Neutrophils (%) (Auto) 46.4 % (37.0-80.0) Lymphocytes (%) (Auto) 37.9 % (10.0-50.0) Monocytes (%) (Auto) 9.5 % (0.0-12.0) Eosinophils (%) (Auto) 5.6 % (0.0-7.0) Basophils (%) (Auto) 0.6 % (0.0-2.0) Neutrophils # (Auto) 3.0 10 ^3/uL (1.6-8.6) Lymphocytes # (Auto) 2.5 10 ^3/uL (0.4-5.4) Monocytes # (Auto) 0.6 10 ^3/uL (0-1.3) Eosinophils # (Auto) 0.4 10 ^3/uL (0-0.8) Basophils # (Auto) 0 10 ^3/uL (0-0.2) Nucleated Red Blood Cells 0.1 % Total Bilirubin 1.5 mg/dL (0.2-1.0) Aspartate Amino Transferase (AST) 13 U/L (13-40) Alanine Aminotransferase (ALT) < 9 U/L (7-40) Alkaline Phosphatase 59 U/L (46-116) Total Protein 6.1 g/dL (5.7-8.2) Albumin 3.9 g/dL (3.2-4.8) Urine Color Light-yellow (Yellow) Urine Clarity Clear (Clear) Urine pH 5.0 (5.0-9.0) Urine Specific [place] 1.015 (1.001-1.035) Urine Protein Negative (Negative) Urine Ketones 1+ (Negative) Urine Blood Negative /uL (Negative) Urine Nitrite Negative (Negative) Urine Bilirubin Negative (Negative) Urine Urobilinogen Normal mg/dL (Negative) Urine Leukocyte Esterase Negative /uL (Negative) Urine RBC 1 /hpf (0 - 4) Urine Microscopic WBC 1 /HPF (0-5) Urine Squamous Epithelial Cells Few /hpf (<5) Urine Bacteria None seen /hpf (None Seen) Urine Mucus Few (None Seen) Urine Glucose Normal mg/dL (Normal) Prothrombin Time 10.8 sec (9.3-11.8) Prothrombin Time INR 1.02 (0.9-1.15) Activated Partial Thromboplast Time 26.7 SEC (24.5-34.5) Other Laboratory Tests 08/22/24 05:50 08/21/24 04:59 Brief Hx & Hospital Course: see dictated note Condition at Discharge: Fair Final Diagnosis/Problems List foreign body in esophagus Discharge Disposition: Home Discharge Instruct/Medications Diet: Cardiac 2g Na,low cholest Diet comment: mechanical soft Activity: No Restrictions, As Tolerated Follow Up/Referral: fu with dr Marrero in 2 wks Medications: resume home meds' script to pharmacy Discharge Statement: "Patient was advised to return to the ER or call 911 if any headaches, dizziness, shortness of breath, chest pain, abdominal pain, bleeding, fevers, or worsening of medical condition. Patient was counseled about treatment plan, medications, possible side effects, patientverbalized understanding. All questions were answered to the best of my ability. This discharge took greater then 30 minutes in planning, reviewing documentation, counseling the patient, and discussing with other team members." ASSESSMENT ASSESSMENT Assessment foreign body in esophagus Date of Service: Aug 22, 2024 Billing Provider: DANUTA RITTER MD Common Visit Codes: [id number] DISCH DAY >30min DANUTA RITTER MD Aug 22, 2024 11:46
[2024-08-22] MEDS ORDERED: PANT40TA2 PO (11:48)
[2024-08-22] MEDS ORDERED: SUCR1TAB31 PO (11:48)
[2024-08-22] MEDS ORDERED: LEVO500T91 PO (11:48)
--- NOTE | 2024-08-22 12:19 | DVHDS ---
DATE OF DISCHARGE: 08/22/2024 HISTORY OF PRESENT ILLNESS: The patient is a 78-year-old lady who is admitted with possible foreign body obstruction and has a history of hypertension. HOSPITAL COURSE: The patient underwent endoscopy by Dr. Elías Barragan. The patient was noted to have food impaction at 30 cm from the incisor along with severe esophagitis and esophageal tear at the site of the foot impaction. The patient subsequently had a CT of the chest, abdomen, and pelvis that showed left upper lobe infiltrates along with esophageal thickening. She also had gallstones. No evidence of pneumomediastinum was seen. The patient's repeat chest x-ray shows improvement in the left-sided infiltrates. She will now be discharged home as per my discussion with Dr. Marrero. The patient will resume her home medications as well as will be on Protonix 40 mg daily, Carafate 1 g p.o. b.i.d. and Levaquin 500 mg daily for 5 days. She will follow up with Dr. Marrero in her primary care in the next 1 to 2 weeks. FINAL DIAGNOSES: * Food impaction with esophageal tear with severe esophagitis. * Left lung aspiration pneumonia. * Hypertension. * Hypernatremia and hypokalemia. Time spent in discharge planning and review of plan with the patient, consulting with nursing was 38 minutes. MD ALEXA Harper/RUSSELL TID: [id number] RECEIPT: [id number]
[2024-08-22 12:35] VITALS: BP 149/69; PULSE 74; RESP 20; TEMP 98.2; O2SAT 95
[2024-08-22 12:48] VITALS: TEMP 36.8
--- NOTE | 2024-08-22 13:03 | DVHPN2 ---
Progress Note - Dictate Date Seen: Aug 22, 2024 Medical Necessity Reason Pt with a Central, PICC or Fol: No Subjective No new complaints Patient denies any chest pain or shortness of breath Patient is tolerating a soft mechanical diet vital signs Vital Sign Date Time Temp Pulse Resp B/P (MAP) Pulse Ox O2 Delivery O2 Flow Rate FiO2 08/22/24 12:48 36.8 08/22/24 12:35 74 20 149/69 (95) 95 08/22/24 08:00 Room Air* 0 21 Total Intake and Output 08/21/24 08/21/24 08/22/24 15:00 23:00 07:00 Intake Total 970 ml 698 ml Balance 970 ml 698 ml medications Current Medications Medications Dose Ordered Sig/Brooks Route Start Time Stop Time Status Last Admin Dose Admin Ondansetron HCl 4 mg Q4HP PRN IV 08/19/24 10:30 Hydralazine HCl 10 mg Q6HP PRN IV 08/19/24 11:30 08/22/24 08:02 10 MG Pantoprazole Sodium 40 mg BID IV 08/20/24 22:00 08/22/24 07:46 40 MG Piperacillin Sod/ Tazobactam Sod 100 ml @ 25 mls/hr Q8HR IV 08/20/24 22:00 Hold 08/21/24 21:17 25 MLS/HR Sucralfate 1 gm QID@0600,1130,1700,2200 PO 08/21/24 06:00 08/22/24 07:46 1 GM Acetaminophen 650 mg Q8HPRN PRN PO 08/21/24 02:45 08/22/24 07:46 650 MG objective GENERAL:Normal, HEENT:Normal, NECK:Normal, LUNGS:Normal, CVS:Normal, ABDOMEN:Normal, MSK:Normal, SKIN:Normal, NEURO:Normal, :Normal laboratory and microbiology Laboratory Tests 08/22/24 05:50 08/21/24 04:59 Test 08/22/24 05:50 Range/Units Serum Glucose 99 74-106 mg/dL Problems(with codes): (1) Hiatal hernia with gastroesophageal reflux disease and esophagitis (2) Food impaction of esophagus Prognosis Plan Patient is stable for discharge from GI point of view Protonix 40 mg p.o. twice a day Carafate 1 g p.o. twice a day Soft mechanical diet Maintained on PPI long-term Outpatient follow up with me in 2-4 weeks or as needed Chew her food well and drink warm liquids with her meals Plan discussed with: Patient, Other (Dr Jo) SHANIKA HERNÁNDEZ MD Aug 22, 2024 13:03
== END 2024-08-22 15:30 | disposition home or self-care (01) | DRG 393 ==
LOC: ER 23:28 → OVERFLOW 08-19 10:28 → TELE-EAST 08-19 13:50
PROVIDERS: ADMIT Internal Medicine; ATTEND Internal Medicine
PROC: 0DC58ZZ Extirpation of Matter from Esophagus, Via Natural or Artificial Opening Endoscopic (ICD-10-PCS; principal; 2024-08-19 11:05)
DX: T18.128A Food in esophagus causing other injury, initial encounter (principal); J69.0 Pneumonitis due to inhalation of food and vomit; E87.0 Hyperosmolality and hypernatremia; I10 Essential (primary) hypertension; K20.90 Esophagitis, unspecified without bleeding; K22.2 Esophageal obstruction; K44.9 Diaphragmatic hernia without obstruction or gangrene; K57.30 Diverticulosis of large intestine without perforation or abscess without bleeding; K80.20 Calculus of gallbladder without cholecystitis without obstruction; I70.0 Atherosclerosis of aorta; R00.1 Bradycardia, unspecified; F41.9 Anxiety disorder, unspecified; W44.F3XA Food entering into or through a natural orifice, initial encounter; E87.6 Hypokalemia; Z79.2 Long term (current) use of antibiotics; Z79.1 Long term (current) use of non-steroidal anti-inflammatories (NSAID); Z79.899 Other long term (current) drug therapy; Y93.89 Activity, other specified; Y92.89 Other specified places as the place of occurrence of the external cause; Y99.8 Other external cause status
CPT/HCPCS: 36415; 71045; 71250; 74176; 80048; 80053; 81001; 83735; 85025; 85610; 85730; 99291; G0378; J2003; J2405; J2470; J2543; J2704